=== PATIENT | male | born 1980 | race Caucasian/White ===

== ENCOUNTER → 2016-11-14 | Outpatient (CLI) | payer BC | LOC: CIMAGING 10:54 | PROVIDERS: ATTEND Family Medicine | DX: M51.36 Other intervertebral disc degeneration, lumbar region (principal); M12.88 Other specific arthropathies, not elsewhere classified, other specified site; S39.012D Strain of muscle, fascia and tendon of lower back, subsequent encounter | CPT/HCPCS: 72100-PO ==